=== PATIENT | female | born 1985 | race Two or more races ===

== ENCOUNTER → 2021-01-20 | Outpatient (CLI) | payer OTHER | END | disposition home or self-care (01) | LOC: PRENATAL 13:52 | PROVIDERS: ATTEND Obstetrics & Gynecology Maternal & Fetal Medicine | DX: O35.0XX1 Maternal care for (suspected) central nervous system malformation in fetus, fetus 1 (principal); O35.3XX1 Maternal care for (suspected) damage to fetus from viral disease in mother, fetus 1; O98.512 Other viral diseases complicating pregnancy, second trimester; Z36.89 Encounter for other specified antenatal screening; Z3A.23 23 weeks gestation of pregnancy ==

== ENCOUNTER → 2021-04-08 | Outpatient (CLI) | payer OTHER ==
[~2021-04-08] MED LIST: CALCIUM500 M2 PO; PRENATAL CAPLE1 EAC1 PO; PRESERVISION L1 EACH PO
== END | disposition home or self-care (01) ==
LOC: PRENATAL 13:30
PROVIDERS: ATTEND Obstetrics & Gynecology Maternal & Fetal Medicine
DX: O26.843 Uterine size-date discrepancy, third trimester (principal); O36.8131 Decreased fetal movements, third trimester, fetus 1; Z36.89 Encounter for other specified antenatal screening; Z3A.34 34 weeks gestation of pregnancy

== ENCOUNTER 2021-05-11 15:00 | Outpatient (CLI) | payer OTHER ==
[2021-05-12] MEDS ORDERED: PRENATAL CAPLE1 EAC1 PO (10:04)
[2021-05-12] MEDS ORDERED: CALCIUM500 M2 PO (10:05)
[2021-05-12] MEDS ORDERED: PRESERVISION L1 EACH PO (10:06)
== END 2021-05-11 19:07 | disposition home or self-care (01) ==
LOC: OBS/DEL 15:00
PROVIDERS: ATTEND Obstetrics & Gynecology
DX: O47.1 False labor at or after 37 completed weeks of gestation (principal); Z3A.38 38 weeks gestation of pregnancy

== ENCOUNTER 2021-05-12 09:40 | Inpatient (IN) | payer OTHER ==
[~2021-05-12] VITALS: Ht 157.5 cm; Wt 65.8 kg
[2021-05-12] MEDS ORDERED: PRENATAL CAPLE1 EAC1 PO (10:04)
[2021-05-12] MEDS ORDERED: CALCIUM500 M2 PO (10:05)
[2021-05-12] MEDS ORDERED: PRESERVISION L1 EACH PO (10:06)
== END 2021-05-14 11:58 | disposition home or self-care (01) | DRG 807 ==
LOC: LDR 09:40 → OB/GYN 09:40
PROVIDERS: ADMIT Obstetrics & Gynecology; ATTEND Obstetrics & Gynecology
PROC: 10E0XZZ Delivery of Products of Conception, External Approach (ICD-10-PCS; principal; 2021-05-12)
PROC: 0W8NXZZ Division of Female Perineum, External Approach (ICD-10-PCS; 2021-05-12)
PROC: 10907ZC Drainage of Amniotic Fluid, Therapeutic from Products of Conception, Via Natural or Artificial Opening (ICD-10-PCS; 2021-05-12)
PROC: 4A1HXFZ Monitoring of Products of Conception, Cardiac Rhythm, External Approach (ICD-10-PCS; 2021-05-12)
DX: O99.824 Streptococcus B carrier state complicating childbirth (principal); Z37.0 Single live birth; Z3A.37 37 weeks gestation of pregnancy; Z20.822 Contact with and (suspected) exposure to COVID-19